=== PATIENT | female | born 1965 | race Caucasian/White ===

== ENCOUNTER 2022-10-02 10:10 | Emergency (ER) | payer BC, OTHER ==
[2022-10-02] MEDS ORDERED: Sodium Chloride 0.9% 10 ML Syringe FLUSH PRN (10:27)
[2022-10-02] MEDS ORDERED: Sodium Chloride 0.9% 2.5 ML Syringe FLUSH PRN (10:27)
[2022-10-02 10:39] LABS: APPEARANCE,URINE CLEAR; BILIRUBIN,URINE NEGATIVE (NEGATIVE); GLUCOSE,URINE NEGATIVE (NEGATIVE); KETONES,URINE NEGATIVE (NEGATIVE); LEUKOCYTE ESTERASE,URINE NEGATIVE (NEGATIVE); NITRITE,URINE NEGATIVE (NEGATIVE); OCCULT BLOOD,URINE LARGE (NEGATIVE); PH,URINE 5.5 (5.0-8.0); PROTEIN,URINE NEGATIVE (NEGATIVE); UROBILINOGEN,URINE 0.2 EU/dL (<2.0)
[2022-10-02] MEDS ORDERED: Sodium Chloride 0.9% 1,000 ML IV STA (10:39)
[2022-10-02 10:42] LABS: COLOR,URINE STRAW
[2022-10-02 10:57] LABS: BACTERIA,URINE NOT SEEN (NEGATIVE); EPITHELIAL CELLS,URINE OCCASIONAL (NONE-FEW); WBC,URINE 0-1 (0-5/HPF)
[2022-10-02 11:15] LABS: BASOPHILS PERCENT AUTO 0.2 % (0.0-1.5); EOSINOPHILS ABSOLUTE AUTO 0.1 K/uL (0.0-0.7); EOSINOPHILS PERCENT AUTO 0.6 % (0.0-7.0); HEMOGLOBIN 14.8 g/dL (12.0-16.0); LYMPHOCYTES ABSOLUTE AUTO 0.8 K/uL (0.6-2.4); LYMPHOCYTES PERCENT AUTO 10.3 % (16.0-40.0); MEAN CORPUSCULAR HEMOGLOBIN 31.3 pg (27.0-32.0); MEAN CORPUSCULAR HGB CONC 33.6 g/dL (31.0-37.0); MONOCYTES ABSOLUTE AUTO 0.5 K/uL (0.0-0.8); MONOCYTES PERCENT AUTO 5.6 % (0.0-15.0); NEUTROPHILS ABSOLUTE AUTO 6.7 K/uL (1.4-5.7); NEUTROPHILS PERCENT AUTO 83.3 % (48.0-80.0); NRBC ABSOLUTE 0 K/uL; PLATELET COUNT,PLT 245 K/uL (150-400); RED BLOOD CELL COUNT 4.73 M/uL (4.30-5.90); WHITE BLOOD CELL COUNT,WBC 8.09 K/uL (4.0-11.0)
[2022-10-02 11:32] LABS: ALBUMIN 3.8 g/dL (3.4-5.0); BILIRUBIN TOTAL 0.6 mg/dL (0.2-1.0); CALCIUM 8.9 mg/dL (8.5-10.1); CREATININE 0.8 mg/dL (0.6-1.0); EST CRCL DRUG DOSING (CG) 70.88 mL/min; MAGNESIUM 1.9 mg/dL (1.8-2.4); POTASSIUM,K 4.1 mmol/L (3.5-5.1); PROTEIN TOTAL,TP 7.7 g/dL (6.4-8.2)
== END 2022-10-02 12:49 | disposition home or self-care (01) ==
LOC: MW.ED 10:10
DX: N13.2 Hydronephrosis with renal and ureteral calculous obstruction (principal); I10 Essential (primary) hypertension; Z88.8 Allergy status to other drugs, medicaments and biological substances
CPT/HCPCS: 36415; 74176; 80053; 81001; 83690; 83735; 85025; 96360; 99284; J3490; J7030; 93010; 99282

== ENCOUNTER 2023-01-26 10:03 | Day surgery (SDC) | payer BC ==
[~2023-01-26 10:03] MED LIST: Lactated Ringers 1,000 ML IV SCH; Sodium Chloride 0.9% 10 ML Syringe FLUSH PRN; Sodium Chloride 0.9% 2.5 ML Syringe FLUSH PRN; Sodium Chloride 0.9% 20 ML SDV IV PRN
[2023-01-26] MEDS ORDERED: propofoL 50 ML ONE (11:02)
== END 2023-01-26 12:05 | disposition home or self-care (01) ==
LOC: MW.SDS 10:03
PROVIDERS: ATTEND Surgery
DX: Z12.11 Encounter for screening for malignant neoplasm of colon (principal); D12.2 Benign neoplasm of ascending colon; D12.5 Benign neoplasm of sigmoid colon; I10 Essential (primary) hypertension; E66.9 Obesity, unspecified; Z68.41 Body mass index [BMI] 40.0-44.9, adult; Z79.899 Other long term (current) drug therapy
CPT/HCPCS: J2704; J7120

== ENCOUNTER 2023-11-07 15:22 | Inpatient (IN) | payer BC ==
[2023-11-07] MEDS ORDERED: Sodium Chloride 0.9% 2.5 ML Syringe FLUSH PRN ×2 (15:55→19:35)
[2023-11-07] MEDS ORDERED: Sodium Chloride 0.9% 10 ML Syringe FLUSH PRN ×2 (15:55→19:35)
[2023-11-07] MEDS: Morphine 4 MG/ML Syringe IVPUSH ONE (16:30)
[2023-11-07] MEDS: Alum Hydrox/Mag Hydrox/Simeth 15 ML, Lidocaine 2% 5 ML PO ONE (16:30)
[2023-11-07] MEDS: Ondansetron 4 MG/2 ML SDV IVPUSH ONE (16:30)
[2023-11-07 16:44] LABS: BASOPHILS ABSOLUTE AUTO 0.04 K/uL (0.00-0.20); BASOPHILS PERCENT AUTO 0.4 % (0.0-1.0); EOSINOPHILS ABSOLUTE AUTO 0.08 K/uL (0.00-0.45); EOSINOPHILS PERCENT AUTO 0.7 % (0.0-6.0); HEMATOCRIT 45.8 % (37.0-47.0); HEMOGLOBIN 15.5 g/dL (12.0-16.0); IMMATURE GRAN ABSOLUTE AUTO 0.04 K/uL (0.00-0.05); IMMATURE GRAN PERCENT AUTO 0.4 % (0.0-0.4); LYMPHOCYTES PERCENT AUTO 11.9 % (24.0-44.0); MEAN CORPUSCULAR HEMOGLOBIN 31.6 pg (28.0-32.0); MEAN CORPUSCULAR HGB CONC 33.8 g/dL (32.0-36.0); MEAN CORPUSCULAR VOLUME 93.3 fL (83.0-99.0); MEAN PLATELET VOLUME 9.8 fL (9.4-12.3); MONOCYTES PERCENT AUTO 6.4 % (0.0-8.0); NEUTROPHILS ABSOLUTE AUTO 8.77 K/uL (1.80-7.70); NEUTROPHILS PERCENT AUTO 80.2 % (41.0-71.0); PLATELET COUNT,PLT 254 K/uL (150-400); RED BLOOD CELL COUNT 4.91 M/uL (4.10-5.30); WHITE BLOOD CELL COUNT,WBC 10.93 K/uL (3.9-11.3)
[2023-11-07 16:45] LABS: APPEARANCE,URINE CLEAR; BILIRUBIN,URINE NEGATIVE (NEGATIVE); COLOR,URINE YELLOW; GLUCOSE,URINE NEGATIVE (NEGATIVE); KETONES,URINE NEGATIVE (NEGATIVE); LEUKOCYTE ESTERASE,URINE SMALL (NEGATIVE); NITRITE,URINE NEGATIVE (NEGATIVE); OCCULT BLOOD,URINE TRACE-INTACT (NEGATIVE); PROTEIN,URINE NEGATIVE (NEGATIVE)
[2023-11-07 16:59] LABS: INR 1.02 (0.86-1.11)
[2023-11-07 17:04] LABS: EPITHELIAL CELLS,URINE FEW (NONE-FEW)
[2023-11-07 17:05] LABS: AMORPHOUS SEDIMENT,URINE LIGHT (NEGATIVE); BACTERIA,URINE FEW (NEGATIVE)
[2023-11-07 17:08] LABS: A/G RATIO 1.1 (0.9-1.6); ALBUMIN 4.2 g/dL (3.4-5.0); BILIRUBIN TOTAL 1.6 mg/dL (0.2-1.0); CALCIUM 10.9 mg/dL (8.5-10.1); CARBON DIOXIDE,CO2 29.8 mmol/L (21.0-32.0); CREATININE 0.8 mg/dL (0.6-1.0); EST CRCL DRUG DOSING (CG) 72.72 mL/min
[2023-11-07] MEDS: Iopamidol 755 MG/ML 500 ML Multipack Bottle IVPUSH STA (17:26)
[2023-11-07] MEDS: Sodium Chloride 0.9% 1,000 ML IV ONE (19:06)
[2023-11-07] MEDS ORDERED: diphenhydrAMINE 50 MG/ML SDV IVPUSH PRN (19:35)
[2023-11-07] MEDS ORDERED: HYDROmorphone 2 MG/ML Syringe IVPUSH PRN (19:35)
[2023-11-07] MEDS ORDERED: Ondansetron 4 MG/2 ML SDV IVPUSH PRN (19:35)
[2023-11-07] MEDS ORDERED: Sodium Chloride 0.9% 20 ML SDV IV PRN (19:35)
[2023-11-07] MEDS ORDERED: traMADol 50 MG Tab PO PRN (19:38)
[2023-11-07] MEDS ORDERED: Calcium Carbonate 500 MG Tab.Chew PO PRN (19:40)
[2023-11-07] MEDS ORDERED: hydrALAZINE 20 MG/ML SDV IVPUSH PRN (19:42)
[2023-11-07] MEDS: Pantoprazole 40 MG Tab.CR PO SCH (20:49)
[2023-11-08 05:46] LABS: BASOPHILS ABSOLUTE AUTO 0.05 K/uL (0.00-0.20); BASOPHILS PERCENT AUTO 0.8 % (0.0-1.0); EOSINOPHILS ABSOLUTE AUTO 0.09 K/uL (0.00-0.45); EOSINOPHILS PERCENT AUTO 1.4 % (0.0-6.0); HEMATOCRIT 43.5 % (37.0-47.0); HEMOGLOBIN 14.8 g/dL (12.0-16.0); IMMATURE GRAN ABSOLUTE AUTO 0.02 K/uL (0.00-0.05); IMMATURE GRAN PERCENT AUTO 0.3 % (0.0-0.4); LYMPHOCYTES PERCENT AUTO 10.8 % (24.0-44.0); MEAN CORPUSCULAR HEMOGLOBIN 31.5 pg (28.0-32.0); MEAN CORPUSCULAR VOLUME 92.6 fL (83.0-99.0); MEAN PLATELET VOLUME 9.9 fL (9.4-12.3); MONOCYTES ABSOLUTE AUTO 0.53 K/uL (0.00-0.80); MONOCYTES PERCENT AUTO 8.2 % (0.0-8.0); NEUTROPHILS PERCENT AUTO 78.5 % (41.0-71.0); PLATELET COUNT,PLT 254 K/uL (150-400); WHITE BLOOD CELL COUNT,WBC 6.49 K/uL (3.9-11.3)
[2023-11-08 06:23] LABS: ALBUMIN 3.6 g/dL (3.4-5.0); BILIRUBIN TOTAL 2.4 mg/dL (0.2-1.0); CALCIUM 10.4 mg/dL (8.5-10.1); CARBON DIOXIDE,CO2 27.9 mmol/L (21.0-32.0); POTASSIUM,K 4.3 mmol/L (3.5-5.1); PROTEIN TOTAL,TP 7.3 g/dL (6.4-8.2)
[2023-11-08] MEDS: Sodium Chloride 0.9% 1,000 ML IV SCH (07:43)
[2023-11-08] MEDS: Hydrochlorothiazide/Losartan 12.5-50 mg Tab PO SCH (09:46)
[2023-11-08] MEDS: LORazepam 2 MG/ML SDV IVPUSH ONE (10:04)
[2023-11-08 10:59] LABS: A/G RATIO 1.1 (0.9-1.6); ALBUMIN 3.9 g/dL (3.4-5.0); BILIRUBIN TOTAL 1.9 mg/dL (0.2-1.0); CARBON DIOXIDE,CO2 30.5 mmol/L (21.0-32.0); POTASSIUM,K 4.3 mmol/L (3.5-5.1); PROTEIN TOTAL,TP 7.6 g/dL (6.4-8.2)
[2023-11-09 06:52] LABS: A/G RATIO 1.1 (0.9-1.6); ALBUMIN 3.6 g/dL (3.4-5.0); BILIRUBIN TOTAL 1.1 mg/dL (0.2-1.0); CARBON DIOXIDE,CO2 25.9 mmol/L (21.0-32.0); CREATININE 0.8 mg/dL (0.6-1.0); EST CRCL DRUG DOSING (CG) 70.01 mL/min
[2023-11-09] MEDS ORDERED: Dexamethasone 4 MG/ML 5 ML MDV IVPUSH ONE (10:59)
[2023-11-09] MEDS ORDERED: Sugammadex Sodium 200 MG/2 ML VIAL IV ONE (10:59)
[2023-11-09] MEDS ORDERED: Ondansetron 4 MG/2 ML SDV IVPUSH ONE (10:59)
[2023-11-09] MEDS ORDERED: Bupivacaine 0.5% 30 ML SDV ONE (13:03)
[2023-11-09] MEDS ORDERED: Ropivacaine 0.5% 5 MG/ML 30 ML SDV ONE (13:16)
[2023-11-09] MEDS ORDERED: Bupivacaine 0.25% 30 ML SDV ONE (13:16)
[2023-11-09] MEDS ORDERED: Rocuronium Bromide 50 MG/5 ML Syringe ONE (13:17)
[2023-11-09] MEDS ORDERED: Lidocaine 2% 5 ML SDV ONE (13:17)
[2023-11-09] MEDS ORDERED: fentaNYL 100 MCG/2 ML SDV ONE (13:18)
[2023-11-09] MEDS ORDERED: Propofol 200 MG/20 ML SDV ONE (13:18)
[2023-11-09] MEDS ORDERED: Midazolam 1 MG/ML 2 ML SDV ONE (13:18)
[2023-11-09] MEDS ORDERED: ceFAZolin 1 GM Vial ONE (14:40)
[2023-11-09] MEDS ORDERED: Ondansetron 4 MG/2 ML SDV IVPUSH PRN (14:52)
[2023-11-09] MEDS ORDERED: Metoclopramide 10 MG/2 ML SDV IVPUSH PRN (14:52)
[2023-11-09] MEDS ORDERED: Naloxone 0.4 MG/ML SDV IVPUSH PRN (14:52)
[2023-11-09] MEDS ORDERED: Albuterol 0.083% 2.5 MG/3 ML Neb Soln NEB PRN (14:52)
[2023-11-09] MEDS ORDERED: Phenylephrine HCl In 0.9% NaCl 1 MG/10 ML Syringe IVPUSH PRN (14:52)
[2023-11-09] MEDS ORDERED: Morphine 2 MG/ML SYRINGE IVPUSH PRN (14:52)
[2023-11-09] MEDS ORDERED: oxyCODONE 5 MG Tab PO PRN (15:54)
[2023-11-09] MEDS: fentaNYL 50 MCG/ML SDV IVPUSH PRN (15:56)
[2023-11-09] MEDS: HYDROmorphone 1 MG/ML Syringe IVPUSH PRN (15:57)
[2023-11-10] MEDS: Ketorolac 30 MG/ML SDV IVPUSH PRN (00:35)
[2023-11-10] MEDS: Polyethylene Glycol 3350 Powder 17 GM Packet PO SCH (09:33)
== END 2023-11-09 11:00 | disposition home or self-care (01) | DRG 263 ==
LOC: MW.ED 15:22 → INTOOBSV 18:44 → MW.MS 18:44 → OBSVTOIN 11-08 12:29 → MW.MS 11-08 15:27
PROVIDERS: ADMIT Surgery; ATTEND Surgery
PROC: 0FT44ZZ Resection of Gallbladder, Percutaneous Endoscopic Approach (ICD-10-PCS; principal; 2023-11-09 13:15)
DX: K80.21 Calculus of gallbladder without cholecystitis with obstruction (principal); Z68.41 Body mass index [BMI] 40.0-44.9, adult; E66.9 Obesity, unspecified; K76.0 Fatty (change of) liver, not elsewhere classified; I10 Essential (primary) hypertension; M19.90 Unspecified osteoarthritis, unspecified site; K21.9 Gastro-esophageal reflux disease without esophagitis; Z88.8 Allergy status to other drugs, medicaments and biological substances; Z87.442 Personal history of urinary calculi; Z96.659 Presence of unspecified artificial knee joint; Z98.890 Other specified postprocedural states; Z79.899 Other long term (current) drug therapy
CPT/HCPCS: 00790; 36415; 64488; 74177; 74177-26; 74181; 74181-26; 76700; 76700-26; 80053; 81001; 82947; 83690; 84484; 85025; 85610; 87086; 93005; 99285; A9270-GY; G0378; J0665; J0690; J1100; J1171; J2250; J2405; J2704; J2795; J3010; J3490; J7030; Q9967